=== PATIENT | male | born 1990 | race Caucasian/White ===

== ENCOUNTER 2017-10-03 17:52 | Emergency (ER) | payer SELFPAY ==
[~2017-10-03] VITALS: Ht 170.2 cm; Wt 117.9 kg
[2017-10-03 19:19] VITALS: BP 150/90
--- NOTE | 2017-10-03 19:24 | NUR ---
TO LOBBY. AMB,, VSS, A/W BED, ERMTrisha NOTED
--- NOTE | 2017-10-03 21:47 | NUR ---
PATIENT LEFT WITHOUT BEING SEEN BY DR. CASTRO. NO FURTHER CARE PROVIDED FOR PATIENT.
== END 2017-10-03 21:47 | disposition left against medical advice (07) ==
LOC: MED 17:52
DX: S61.012A Laceration without foreign body of left thumb without damage to nail, initial encounter (principal); X58.XXXA Exposure to other specified factors, initial encounter; Y93.89 Activity, other specified; Y92.89 Other specified places as the place of occurrence of the external cause; Y99.8 Other external cause status